=== PATIENT | female | born 1995 | race Asian ===

== ENCOUNTER 2016-07-26 17:47 | Emergency (ER) | END 2016-07-26 18:13 | disposition left against medical advice (07) | LOC: M ED 17:47 | DX: Z53.29 Procedure and treatment not carried out because of patient's decision for other reasons (principal) ==

== ENCOUNTER 2016-08-09 20:10 | Emergency (ER) | payer SELFPAY ==
[2016-08-09] MEDS ORDERED: ONDANSETRON 4 MG ORAL DISINTEGRATING TAB (S0181) As Ordered ONE (21:00)
--- NOTE | 2016-08-09 22:03 | EDDOCDS ---
Physician Documentation [facility] Name: Tina Moore Age: 20 yrs Sex: Female : 1995 Arrival Date: 08/09/2016 Time: 20:10 Bed PR Private MD: Unknown Pcp Disposition: 08/09/16 21:43 Discharged to Home/Self Care. Impression: Diarrhea, unspecified, Vomiting. - Condition is Stable. - Discharge Instructions: Food Choices to Help Relieve Diarrhea, Adult, Diarrhea, Nausea and Vomiting. - Prescriptions for Reglan 10 mg Oral Tablet - take 1 tablet by ORAL route every 6 hours take 30 minutes before meals and at bedtime; 20 tablet. - Medication Reconciliation, Local Pharmacy Hours form. - Follow up: Private Physician; When: Call to arrange an appointment; Reason: Recheck today's complaints, Continuance of care. - Problem is new. - Symptoms are unchanged. Historical: - Allergies: Amoxicillin; - Home Meds: 1. none - PMHx: Anemia; - PSHx: none; - Social history: Smoking status: Patient uses tobacco products, light tobacco smoker. No barriers to communication noted, The patient speaks fluent [place] Island[place], Speaks appropriately for age. - Family history: No immediate family members are acutely ill. - : The pt / caregiver states he / she is not on anticoagulants. Home medication list is obtained from the patient. - Exposure Risk Screening:: None identified. 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 2 in. (157.48 cm); Pain 5/10; 20:12 Body Mass Index 32.92 (81.65 kg, 157.48 cm) jlm MDM: 20:50 Ondansetron ODT Oral Disintegrating Tablet 4 mg PO once ordered. mo1 20:50 Ondansetron ODT Oral Disintegrating Tablet 4 mg PO once; please give to go home ordered.mo1 20:50 Fluid Challenge ordered. mo1 20:59 Ondansetron ODT Oral Disintegrating Tablet 8 mg PO once; please give to go home home, mo1 take every 8hrs ordered. 21:32 Financial registration complete. kf3 Administered Medications: 21:11 Drug: Ondansetron ODT 4 mg [ondansetron 4 mg disintegrating tablet (1 tabs)] Route: PO; mb9 21:11 Drug: Ondansetron ODT 4 mg [ondansetron 4 mg disintegrating tablet (1 tabs)] Route: PO; mb9 21:11 Drug: Ondansetron ODT 8 mg [ondansetron 4 mg disintegrating tablet (2 tabs)] Route: PO; mb9 Signatures: Keyla CharltonRN RN jo3 Armando Inman, Reg Reg kf3 Fabio Govea PA PA mo1 Fabio Prescott,CRISTEL RN mb9 MTDD
--- NOTE | 2016-08-09 22:03 | EDDOCDS ---
Nurse's Notes [facility] Name: Tina Moore Age: 20 yrs Sex: Female : 1995 Arrival Date: 08/09/2016 Time: 20:10 Bed PR Private MD: Unknown Pcp Diagnosis: Diarrhea, unspecified;Vomiting Presentation: 08/09 20:19 Presenting complaint: Patient states: Nausea, vomiting and diarrhea since last night. jo3 Adult Sepsis Screening: The patient does not have new or worsening altered mentation. Patient's respiratory rate is less than 22. Systolic blood pressure is greater than 100. Patient has a qSOFA score of 0- Negative Sepsis Screen. Suicide/Homicide risk assessment- the patient denies having any suicidal and/or homicidal ideations and does not present with any other emotional, behavioral or mental health complaints. Status: Patient is not a school services officer or dependent. Transition of care: patient was not received from another setting of care. 20:19 Acuity: GINA Level 3 jo3 20:19 Method Of Arrival: Walkin/Carried/Asstd jo3 Triage Assessment: 20:20 General: Appears in no apparent distress, Behavior is cooperative. HIV screening NA for jo3 this visit Offered previously. Neurological: Level of Consciousness is awake, alert, Oriented to person, place, time. Respiratory: Airway is patent Respiratory effort is even, unlabored. Derm: Skin is pink, warm & dry. 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 none - PMHx: Anemia; - PSHx: none; - Social history: Smoking status: Patient uses tobacco products, light tobacco smoker. No barriers to communication noted, The patient speaks fluent Liberian, Speaks appropriately for age. - Family history: No immediate family members are acutely ill. - : The pt / caregiver states he / she is not on anticoagulants. Home medication list is obtained from the patient. - Exposure Risk Screening:: None identified. Screenin:44 Screening information is obtained from the patient. Fall risk: No risks identified. mb9 Assistance ADL's: requires no assistance with activities of daily living. Abuse/DV Screen: The patient / caregiver reports he/she is: not in a situation that causes fear, pain or injury. Nutritional screening: No deficits noted. Advance Directives: There is no active DNR order. home support is adequate. Assessment: 21:12 General: Appears uncomfortable, Behavior is appropriate for age, cooperative. mb9 Respiratory: Airway is patent Respiratory effort is even, unlabored. GI: Reports nausea. 21:44 General: Appears uncomfortable, Behavior is appropriate for age, cooperative. mb9 Respiratory: Airway is patent Respiratory effort is even, unlabored. Vital Signs: 20:12 BP 111 / 68; Pulse 117; Resp 18; Temp 99.4; Pulse Ox 96% ; Weight 81.65 kg; Height 5 [facility] ft. 2 in. (157.48 cm); Pain 5/10; 20:12 Body Mass Index 32.92 (81.65 kg, 157.48 cm) [facility] Vitals: 20:12 Log In Time: August 09, 2016 at 20:12. [facility] ED Course: 20:11 Patient visited by Nelly Fernandez Unit Clerk. jlm 20:11 Unknown Pcp is Private Physician. jlm 20:11 Patient moved to Waiting jlm 20:13 Patient moved to Pre RCE jlm 20:20 Triage Initiated jo3 20:21 Patient visited by Keyla Charlton,CRISTEL. jo3 20:29 Patient moved to Triage 1 mb9 20:35 Fabio Govea PA is PHCP. mo1 20:35 Mingo Jacobsen DO is Attending Physician. mo1 20:55 Patient visited by Fabio Govea PA. mo1 20:59 Patient moved to PR1 / 25 jb5 21:27 Patient visited by Lachelle Saxena PCA. jb5 21:44 The patient / caregiver is instructed regarding the plan of care and ED course. Patient mb9 has correct armband on for positive identification. 22:00 No IV's were initiated during this patient's visit. No procedures done that require mb9 assistance. Administered Medications: 21:11 Drug: Ondansetron ODT 4 mg [ondansetron 4 mg disintegrating tablet (1 tabs)] Route: PO; mb9 21:11 Drug: Ondansetron ODT 4 mg [ondansetron 4 mg disintegrating tablet (1 tabs)] Route: PO; mb9 21:11 Drug: Ondansetron ODT 8 mg [ondansetron 4 mg disintegrating tablet (2 tabs)] Route: PO; mb9 Order Results: There are currently no results for this order. Outcome: 21:43 Discharge ordered by Provider. mo1 22:00 Discharge Assessment: Patient awake, alert and oriented x 3. No cognitive and/or mb9 functional deficits noted. Patient verbalized understanding of disposition instructions. patient administered narcotics - no. The following High Risk Discharge criteria are identified: None. Discharged to home. Condition: good Condition: stable Condition: improved. Discharge instructions given to patient, Instructed on discharge instructions, Demonstrated understanding of instructions, medications, Pt was receptive of discharge instructions/ teaching. Prescriptions given X 1. No special radiology studies were completed. Property :Personal belongings accompany Pt. 22:02 Patient left the ED. mb9 Signatures: Lachelle Saxena, EVE MOTION STUDY ENGINEER jb5 Keyla Charlton,RN RN jo3 Fabio Govea PA PA mo1 Nelly Fernandez, Aerial Installer Unit Fabio Maguire RN RN mb9 MTDD
--- NOTE | 2016-08-11 23:04 | EDDOCDS ---
Physician Documentation [facility] Name: Tina Moore Age: 20 yrs Sex: Female : 1995 Arrival Date: 08/09/2016 Time: 20:10 Bed PR Private MD: Unknown Pcp Disposition: 08/09/16 21:43 Discharged to Home/Self Care. Impression: Diarrhea, unspecified, Vomiting. - Condition is Stable. - Discharge Instructions: Food Choices to Help Relieve Diarrhea, Adult, Diarrhea, Nausea and Vomiting. - Prescriptions for Reglan 10 mg Oral Tablet - take 1 tablet by ORAL route every 6 hours take 30 minutes before meals and at bedtime; 20 tablet. - Medication Reconciliation, Local Pharmacy Hours form. - Follow up: Private Physician; When: Call to arrange an appointment; Reason: Recheck today's complaints, Continuance of care. - Problem is new. - Symptoms are unchanged. Historical: - Allergies: Amoxicillin; - Home Meds: 1. none - PMHx: Anemia; - PSHx: none; - Social history: Smoking status: Patient uses tobacco products, light tobacco smoker. No barriers to communication noted, The patient speaks fluent [place], Speaks appropriately for age. - Family history: No immediate family members are acutely ill. - : The pt / caregiver states he / she is not on anticoagulants. Home medication list is obtained from the patient. - Exposure Risk Screening:: None identified. 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 2 in. (157.48 cm); Pain 5/10; 20:12 Body Mass Index 32.92 (81.65 kg, 157.48 cm) jlm MDM: 20:50 Ondansetron ODT Oral Disintegrating Tablet 4 mg PO once ordered. mo1 20:50 Ondansetron ODT Oral Disintegrating Tablet 4 mg PO once; please give to go home ordered.mo1 20:50 Fluid Challenge ordered. mo1 20:59 Ondansetron ODT Oral Disintegrating Tablet 8 mg PO once; please give to go home home, mo1 take every 8hrs ordered. 21:32 Financial registration complete. kf3 22:24 [facility] Payment Agreement was scanned into [employer] and attached to record. kf3 08/10 09:27 T-Sheet-- Draft Copy was scanned into [employer] and attached to record. seh Administered Medications: 08/09 21:11 Drug: Ondansetron ODT 4 mg [ondansetron 4 mg disintegrating tablet (1 tabs)] Route: PO; mb9 21:11 Drug: Ondansetron ODT 4 mg [ondansetron 4 mg disintegrating tablet (1 tabs)] Route: PO; mb9 21:11 Drug: Ondansetron ODT 8 mg [ondansetron 4 mg disintegrating tablet (2 tabs)] Route: PO; mb9 Signatures: Keyla Charlton RN RN jo3 Armando Inman, Reg Reg kf3 Fabio Govea PA PA mo1 Fabio Prescott RN RN mb9 Noni Lauren [facility] The chart was reviewed and I authenticate all verbal orders and agree with the evaluation and treatment provided.Attachments: :24 [facility] Payment Agreement kf3 08/10 09:27 T-Sheet-- Draft Copy [facility] Chart Complete MTDD
--- NOTE | 2016-08-11 23:04 | EDDOCDS ---
Nurse's Notes [facility] Name: Tina Moore Age: 20 yrs Sex: Female : 1995 Arrival Date: 08/09/2016 Time: 20:10 Bed PR Private MD: Unknown Pcp Diagnosis: Diarrhea, unspecified;Vomiting Presentation: 08/09 20:19 Presenting complaint: Patient states: Nausea, vomiting and diarrhea since last night. jo3 Adult Sepsis Screening: The patient does not have new or worsening altered mentation. Patient's respiratory rate is less than 22. Systolic blood pressure is greater than 100. Patient has a qSOFA score of 0- Negative Sepsis Screen. Suicide/Homicide risk assessment- the patient denies having any suicidal and/or homicidal ideations and does not present with any other emotional, behavioral or mental health complaints. Status: Patient is not a service director or dependent. Transition of care: patient was not received from another setting of care. 20:19 Acuity: GINA Level 3 jo3 20:19 Method Of Arrival: Walkin/Carried/Asstd jo3 Triage Assessment: 20:20 General: Appears in no apparent distress, Behavior is cooperative. HIV screening NA for jo3 this visit Offered previously. Neurological: Level of Consciousness is awake, alert, Oriented to person, place, time. Respiratory: Airway is patent Respiratory effort is even, unlabored. Derm: Skin is pink, warm & dry. 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 none - PMHx: Anemia; - PSHx: none; - Social history: Smoking status: Patient uses tobacco products, light tobacco smoker. No barriers to communication noted, The patient speaks fluent [place]ibian, Speaks appropriately for age. - Family history: No immediate family members are acutely ill. - : The pt / caregiver states he / she is not on anticoagulants. Home medication list is obtained from the patient. - Exposure Risk Screening:: None identified. Screenin:44 Screening information is obtained from the patient. Fall risk: No risks identified. mb9 Assistance ADL's: requires no assistance with activities of daily living. Abuse/DV Screen: The patient / caregiver reports he/she is: not in a situation that causes fear, pain or injury. Nutritional screening: No deficits noted. Advance Directives: There is no active DNR order. home support is adequate. Assessment: 21:12 General: Appears uncomfortable, Behavior is appropriate for age, cooperative. mb9 Respiratory: Airway is patent Respiratory effort is even, unlabored. GI: Reports nausea. 21:44 General: Appears uncomfortable, Behavior is appropriate for age, cooperative. mb9 Respiratory: Airway is patent Respiratory effort is even, unlabored. Vital Signs: 20:12 BP 111 / 68; Pulse 117; Resp 18; Temp 99.4; Pulse Ox 96% ; Weight 81.65 kg; Height 5 [facility] ft. 2 in. (157.48 cm); Pain 5/10; 20:12 Body Mass Index 32.92 (81.65 kg, 157.48 cm) [facility] Vitals: 20:12 Log In Time: August 09, 2016 at 20:12. [facility] ED Course: 20:11 Patient visited by Nelly Fernandez Unit Clerk. jlm 20:11 Unknown Pcp is Private Physician. jlm 20:11 Patient moved to Waiting jlm 20:13 Patient moved to Pre RCE jlm 20:20 Triage Initiated jo3 20:21 Patient visited by Keyla Charlton,CRISTEL. jo3 20:29 Patient moved to Triage 1 mb9 20:35 Fabio Govea PA is PHCP. mo1 20:35 Mingo Jacobsen DO is Attending Physician. mo1 20:55 Patient visited by Fabio Govea PA. mo1 20:59 Patient moved to PR1 / 25 jb5 21:27 Patient visited by Lachelle Saxena PCA. jb5 21:44 The patient / caregiver is instructed regarding the plan of care and ED course. Patient mb9 has correct armband on for positive identification. 22:00 No IV's were initiated during this patient's visit. No procedures done that require mb9 assistance. 22:10 Patient name changed from Tina\S\\S\Uy\S\ to Tina\S\Nary\S\Uy. EDMS 22:24 [facility] Payment Agreement was scanned into [employer] and attached to record. kf3 08/10 09:27 T-Sheet-- Draft Copy was scanned into [employer] and attached to record. [facility] Administered Medications: 08/09 21:11 Drug: Ondansetron ODT 4 mg [ondansetron 4 mg disintegrating tablet (1 tabs)] Route: PO; mb9 21:11 Drug: Ondansetron ODT 4 mg [ondansetron 4 mg disintegrating tablet (1 tabs)] Route: PO; mb9 21:11 Drug: Ondansetron ODT 8 mg [ondansetron 4 mg disintegrating tablet (2 tabs)] Route: PO; mb9 Order Results: There are currently no results for this order. Outcome: 21:43 Discharge ordered by Provider. mo1 22:00 Discharge Assessment: Patient awake, alert and oriented x 3. No cognitive and/or mb9 functional deficits noted. Patient verbalized understanding of disposition instructions. patient administered narcotics - no. The following High Risk Discharge criteria are identified: None. Discharged to home. Condition: good Condition: stable Condition: improved. Discharge instructions given to patient, Instructed on discharge instructions, Demonstrated understanding of instructions, medications, Pt was receptive of discharge instructions/ teaching. Prescriptions given X 1. No special radiology studies were completed. Property :Personal belongings accompany Pt. 22:02 Patient left the ED. mb9 Signatures: Dispatcher [employer] EDMS Lachelle Saxena, LIEN SEARCHER LIEN SEARCHER jb5 Keyla Charlton,RN RN jo3 Armando Inman, Reg Reg kf3 Fabio Govea PA PA mo1 Nelly Fernandez, Tax Intern Unit Fabio Maguire,CRISTEL RN mb9 Noni Lauren Chart Complete MTDD
--- NOTE | 2016-08-11 23:04 | EDDOCDS ---
Physician Documentation [facility] Name: Tina Moore Age: 20 yrs Sex: Female : 1995 Arrival Date: 08/09/2016 Time: 20:10 Bed PR Private MD: Unknown Pcp Disposition: 08/09/16 21:43 Discharged to Home/Self Care. Impression: Diarrhea, unspecified, Vomiting. - Condition is Stable. - Discharge Instructions: Food Choices to Help Relieve Diarrhea, Adult, Diarrhea, Nausea and Vomiting. - Prescriptions for Reglan 10 mg Oral Tablet - take 1 tablet by ORAL route every 6 hours take 30 minutes before meals and at bedtime; 20 tablet. - Medication Reconciliation, Local Pharmacy Hours form. - Follow up: Private Physician; When: Call to arrange an appointment; Reason: Recheck today's complaints, Continuance of care. - Problem is new. - Symptoms are unchanged. Historical: - Allergies: Amoxicillin; - Home Meds: 1. none - PMHx: Anemia; - PSHx: none; - Social history: Smoking status: Patient uses tobacco products, light tobacco smoker. No barriers to communication noted, The patient speaks fluent Australian, Speaks appropriately for age. - Family history: No immediate family members are acutely ill. - : The pt / caregiver states he / she is not on anticoagulants. Home medication list is obtained from the patient. - Exposure Risk Screening:: None identified. 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 2 in. (157.48 cm); Pain 5/10; 20:12 Body Mass Index 32.92 (81.65 kg, 157.48 cm) jlm MDM: 20:50 Ondansetron ODT Oral Disintegrating Tablet 4 mg PO once ordered. mo1 20:50 Ondansetron ODT Oral Disintegrating Tablet 4 mg PO once; please give to go home ordered.mo1 20:50 Fluid Challenge ordered. mo1 20:59 Ondansetron ODT Oral Disintegrating Tablet 8 mg PO once; please give to go home home, mo1 take every 8hrs ordered. 21:32 Financial registration complete. kf3 22:24 [facility] Payment Agreement was scanned into [employer] and attached to record. kf3 08/10 09:27 T-Sheet-- Draft Copy was scanned into [employer] and attached to record. seh Administered Medications: 08/09 21:11 Drug: Ondansetron ODT 4 mg [ondansetron 4 mg disintegrating tablet (1 tabs)] Route: PO; mb9 21:11 Drug: Ondansetron ODT 4 mg [ondansetron 4 mg disintegrating tablet (1 tabs)] Route: PO; mb9 21:11 Drug: Ondansetron ODT 8 mg [ondansetron 4 mg disintegrating tablet (2 tabs)] Route: PO; mb9 Signatures: Keyla Charlton RN RN jo3 Armando Inman, Reg Reg kf3 Fabio Govea PA PA mo1 Fabio Prescott RN RN mb9 Noni Lauren [facility] The chart was reviewed and I authenticate all verbal orders and agree with the evaluation and treatment provided.Attachments: :24 [facility] Payment Agreement kf3 08/10 09:27 T-Sheet-- Draft Copy [facility] Chart Complete MTDD
== END 2016-08-09 22:02 | disposition home or self-care (01) ==
LOC: M ED 20:10
DX: E86.0 Dehydration (principal); R11.2 Nausea with vomiting, unspecified; R19.7 Diarrhea, unspecified; D64.9 Anemia, unspecified; Z88.0 Allergy status to penicillin; F17.210 Nicotine dependence, cigarettes, uncomplicated

== ENCOUNTER 2016-10-01 08:32 | Emergency (ER) | payer MEDICAID, SELFPAY ==
[~2016-10-01] VITALS: Ht 157.5 cm; Wt 83.5 kg
[2016-10-01] MEDS: ALBUTEROL SULFATE 2.5 MG/0.5 ML INH NEB SOLN NEB PRN ×2 (09:49→10:08)
--- NOTE | 2016-10-01 09:53 | REP ---
PA and lateral chest: There are no comparisons. There are nodular densities in the right hilus and there is a nodular density in the left parahilar zone. There are no focal infiltrates. There are no pleural effusions. Lung [place] otherwise clear. Mediastinum, bony thorax are unremarkable. Impression: Bilateral hilar nodular densities. There are no comparison studies to document stability, therefore, CT is recommended for follow up. Signed by Zi Kendall MD 10/01/2016 09:46 A
[2016-10-01 10:51] LABS: CONTROL LINE UCG INT CTR LINE PRESENT
--- NOTE | 2016-10-01 11:56 | REP ---
Emergency CT study of the chest without contrast: History: Further evaluation prominent hilar silhouettes on chest radiograph from this date. No comparison prior studies. CT findings: Digital preliminary coloring room man radiograph is unremarkable. Axial CT images show no evidence of pulmonary mass lesion, or nodule. There is a very subtle ground-glass opacity in the medial segment right middle lobe which could be inflammatory. There is some subtle subsegmental discoid atelectasis associated with this. There is some linear discoid atelectasis visible in the left lower lobe. Lung [place] are otherwise clear. There is no evidence of pleural or pericardial effusion. No hilar or mediastinal mass or adenopathy is observed. No bony destructive lesion is seen. The adrenals are unremarkable. The visualized upper abdominal structures are unremarkable. No extrathoracic mass or adenopathy is seen. Impression: Very subtle hazy opacity in the right middle lobe may be early or viral infiltrate. Bibasilar subsegmental discoid atelectasis. No hilar mass or adenopathy. Otherwise no active disease. Signed by Vitor Moreno MD 10/01/2016 03:38 P
[2016-10-01] MEDS ORDERED: ALBU17IN INH (11:57)
[2016-10-01] MEDS ORDERED: ZITHTAB PO (11:57)
[2016-10-01 12:16] VITALS: BP 129/79
--- NOTE | 2016-10-03 06:55 | ED PDOC ---
Post-Departure Follow-Up pt sent certieid letter. see formal report of cxr for fu Trent García MD Oct 03, 2016 06:55
== END 2016-10-01 12:18 | disposition home or self-care (01) ==
LOC: M ED 09:21
DX: J18.9 Pneumonia, unspecified organism (principal); J45.901 Unspecified asthma with (acute) exacerbation; F17.200 Nicotine dependence, unspecified, uncomplicated; Z88.0 Allergy status to penicillin